=== PATIENT | female | born 1945 | race Caucasian/White ===

== ENCOUNTER 2023-08-23 20:17 | Inpatient (IN) | payer BC ==
[~2023-08-23] VITALS: Ht 162.6 cm; Wt 66.7 kg
[2023-08-23] MEDS ORDERED: FLUT16SP16 NS (20:48)
[2023-08-23] MEDS ORDERED: FLUT16SP16 BNOSTRILS (20:48)
[2023-08-23] MEDS ORDERED: FAMO10TA41 PO (20:48)
[2023-08-23] MEDS ORDERED: ROSU5TAB13 PO (20:48)
[2023-08-23] MEDS ORDERED: GABA-532 PO (20:48)
[2023-08-23 21:17] LABS: BASOPHILS % (AUTO) 0.2 % (0.0-2.0); EOSINOPHILS # (AUTO) 0.2 K/uL (0.0-0.7); EOSINOPHILS % (AUTO) 1.6 % (0.0-7.0); HEMATOCRIT 41.6 % (31.2-41.9); HEMOGLOBIN 13.9 g/dL (10.9-14.3); LYMPHOCYTES # (AUTO) 0.8 K/uL (0.8-4.8); LYMPHOCYTES % (AUTO) 6.1 % (20.5-51.5); MEAN CORPUSCULAR HEMOGLOBIN 30.3 uug (24.7-32.8); MEAN CORPUSCULAR HGB CONC 34 g/dL (32.3-35.6); MEAN CORPUSCULAR VOLUME 90.6 fL (75.5-95.3); MONOCYTES # (AUTO) 0.3 K/uL (0.1-1.30); MONOCYTES % (AUTO) 2.4 % (0.0-11.0); NEUTROPHILS # (AUTO) 12.2 K/uL (1.8-8.9); NEUTROPHILS % (AUTO) 89.7 % (38.5-71.5); PLATELET COUNT (AUTO) 225 K/uL (179-408); RED BLOOD CELL COUNT(AUTO) 4.59 MIL/uL (3.63-4.92); RED CELL DISTRIBUTION WIDTH 13.1 % (12.3-17.7); WHITE BLOOD COUNT (AUTO) 13.6 K/uL (3.8-11.8)
[2023-08-23] MEDS ORDERED: ONDANSETRON 4 MG/2 ML VIAL ONE ×2 (21:28→23:19)
[2023-08-23 21:31] LABS: DIFFERENTIAL COMMENT 1
[2023-08-23] MEDS: IV NORMAL SALINE 1000 ML BAG IV ONE (21:43)
[2023-08-23] MEDS: ONDANSETRON 4 MG/2 ML VIAL IV ONE ×2 (21:43→23:42)
[2023-08-23 21:49] LABS: CARBON DIOXIDE 25 mmol/L (21-32); CHLORIDE 102 mmol/L (98-107); CREATININE 0.6 mg/dL (0.6-1.3); GLUCOSE 101 mg/dL (74-106); SODIUM SERUM 137 mmol/L (136-145); UREA NITROGEN, BLOOD 35 mg/dL (7-18)
[2023-08-23 22:01] LABS: ALANINE AMINOTRANSFERASE 30 U/L (14-59); ALBUMIN 3.4 g/dL (3.4-5.0); ALKALINE PHOSPHATASE 78 U/L (50-136); ASPARTATE AMINOTRANSFERASE 30 U/L (15-37); BILIRUBIN,TOTAL 0.6 mg/dL (0.2-1.0); NT-PRO BNP 62 pg/mL (0-125); TOTAL PROTEIN, SERUM 6.8 g/dL (6.4-8.2)
[2023-08-23 22:52] LABS: *BILIRUBIN,URIN NEGATIVE (NEGATIVE); *CLARITY,URINE CLEAR (CLEAR); *COLOR,URINE YELLOW (YELLOW); *PROTEIN,URINE NEGATIVE (NEGATIVE); *UROBILINOGEN,URINE 0.2 E.U./dl (NORMAL); LEUKOCYTE ESTERASE ,URINE NEGATIVE (NEGATIVE); NITRITE, URINE NEGATIVE (NEGATIVE); UGLUCOSE NEGATIVE (NEGATIVE)
[2023-08-23 23:06] LABS: *BLOOD, URINE NEGATIVE (NEGATIVE); *KETONES,URINE NEGATIVE (NEGATIVE)
[2023-08-23 23:30] VITALS: BP 103/48; TEMP 97.8; O2SAT 95
[2023-08-23] MEDS ORDERED: REMEDY ESSENTIAL ZINC PASTE 113 GM TP PRN (23:30)
[2023-08-23] MEDS ORDERED: HYDROCODONE/APAP 5-325MG TABLET PO PRN (23:30)
[2023-08-23] MEDS ORDERED: HOME MED MISCELLANEOUS XX SCH (23:30)
[2023-08-23] MEDS ORDERED: MAGNESIUM HYDROXIDE 30 ML LIQUID UDC PO PRN (23:30)
[2023-08-24] MEDS: IV NS 1000 ML 1,000 ML IV PRN (00:04)
[2023-08-24 04:00] VITALS: BP 109/50; TEMP 97.7; O2SAT 98
[2023-08-24 04:28] VITALS: BP_SYST 109; BP_SYST 114; BP_DIAS 50; TEMP 98
[2023-08-24] MEDS: PANTOPRAZOLE SODIUM 40 MG TABLET.DR PO SCH (06:34)
[2023-08-24 07:28] LABS: BASOPHILS % (AUTO) 0.1 % (0.0-2.0); EOSINOPHILS # (AUTO) 0.1 K/uL (0.0-0.7); EOSINOPHILS % (AUTO) 0.8 % (0.0-7.0); HEMATOCRIT 33.9 % (31.2-41.9); HEMOGLOBIN 11.7 g/dL (10.9-14.3); LYMPHOCYTES # (AUTO) 0.3 K/uL (0.8-4.8); LYMPHOCYTES % (AUTO) 3.7 % (20.5-51.5); MEAN CORPUSCULAR HEMOGLOBIN 30.9 uug (24.7-32.8); MEAN CORPUSCULAR HGB CONC 35 g/dL (32.3-35.6); MONOCYTES # (AUTO) 0.3 K/uL (0.1-1.30); MONOCYTES % (AUTO) 3.6 % (0.0-11.0); NEUTROPHILS # (AUTO) 7.9 K/uL (1.8-8.9); NEUTROPHILS % (AUTO) 91.8 % (38.5-71.5); PLATELET COUNT (AUTO) 208 K/uL (179-408); RED BLOOD CELL COUNT(AUTO) 3.81 MIL/uL (3.63-4.92); RED CELL DISTRIBUTION WIDTH 13.3 % (12.3-17.7); WHITE BLOOD COUNT (AUTO) 8.6 K/uL (3.8-11.8)
[2023-08-24] MEDS ORDERED: PIPERACILLIN SODIUM/TAZOBACTAM 3.375 G in IV DEXTROSE 5% 50 ML IV SCH (07:30)
[2023-08-24 07:48] LABS: DIFFERENTIAL COMMENT 1
[2023-08-24 08:27] LABS: CALCIUM 7.7 mg/dL (8.5-10.1); CREATININE 0.7 mg/dL (0.6-1.3); MAGNESIUM 1.9 mg/dL (1.8-2.4); POTASSIUM 4.3 mmol/L (3.5-5.1)
[2023-08-24] MEDS: ACETAMINOPHEN 325 MG TABLET PO PRN (08:28)
[2023-08-24] MEDS: FLUTICASONE PROP NASAL SPRAY 16 GM BOTTLE NS SCH (08:28)
[2023-08-24] MEDS: ONDANSETRON 4 MG/2 ML VIAL IV PRN (08:29)
[2023-08-24] MEDS: PIPERACILLIN SODIUM/TAZOBACTAM 3.375 G in IV DEXTROSE 5% 100 ML IV SCH (08:32)
[2023-08-24 08:36] LABS: THYROID STIMULATING HORMONE 0.582 mIU/mL (0.358-3.740)
[2023-08-24 11:07] VITALS: BP 100/45; TEMP 97.6; O2SAT 98
[2023-08-24 14:59] VITALS: BP 104/48; TEMP 98.2; O2SAT 98
[2023-08-24] MEDS: ATORVASTATIN 10 MG TABLET PO SCH (20:17)
[2023-08-24] MEDS: GABAPENTIN 300 MG CAPSULE PO SCH (20:17)
[2023-08-24 20:35] VITALS: BP 111/49; TEMP 98.6; O2SAT 95
[2023-08-24] MEDS ORDERED: GABAPENTIN 100 MG CAPSULE PO SCH (21:00)
[2023-08-25] VITALS: BP 111/47; TEMP 98.3; O2SAT 97
[2023-08-25 05:20] VITALS: BP 128/63; TEMP 98.5; O2SAT 99
[2023-08-25 08:00] VITALS: BP 128/55; TEMP 98.6; O2SAT 97
[2023-08-25] MEDS ORDERED: LEVO500T90 PO (11:40)
[2023-08-25 12:00] VITALS: BP 116/58; TEMP 97; O2SAT 98
== END 2023-08-25 01:30 | disposition home or self-care (01) | DRG 640 ==
LOC: ER 20:21 → TELE3 23:13
PROVIDERS: ADMIT Nurse Practitioner Acute Care; ATTEND Nurse Practitioner Acute Care
DX: E86.0 Dehydration (principal); J15.9 Unspecified bacterial pneumonia; K57.30 Diverticulosis of large intestine without perforation or abscess without bleeding; E78.5 Hyperlipidemia, unspecified; R79.89 Other specified abnormal findings of blood chemistry; J30.9 Allergic rhinitis, unspecified; G62.9 Polyneuropathy, unspecified; K52.9 Noninfective gastroenteritis and colitis, unspecified; K21.9 Gastro-esophageal reflux disease without esophagitis; Z98.890 Other specified postprocedural states; D32.9 Benign neoplasm of meninges, unspecified; R94.4 Abnormal results of kidney function studies
CPT/HCPCS: 36415; 70450; 71045; 83605; 83735; 84100; 84443; 84484; 85025; 93005; 93307; A4606; A4663; C1758; G0378; J2405; J2543; J3535; J7040